=== PATIENT | male | born 1965 | race Caucasian/White ===

== ENCOUNTER → 2020-02-05 13:57 | Outpatient (CLI) | payer BC, SELFPAY ==
--- NOTE | 2020-02-05 | CA_ITS ---
APPROVED REPORT Exam: Exercise Treadmill Technologist: Sneha Botello, Ht: 5 ft 9 in Wt: 230 lbs BSA: 2.19 m2 HR: 63 bpm BP: 135/84 mmHg Rhythm: NSR,NORMAL Medical History Medical History: HTN, Hyperlipidemia Medications: Lisinopril,,,,, Metoprolol,,,,, Simvastatin,,,,, Gabapentin,,,,, Allergies: No known drug allergies Cardiac Risk Factors: HTN, Hyperlipidemia, FHX of CAD Stress Test Details Test: Faustino HR Resting HR: 71 bpm Max Heart Rate (APMHR): 165 bpm Max HR Achieved: 160 bpm Target HR (85% APMHR): 140 bpm % of APMHR: 96 Recovery HR: 144 bpm BP Resting BP: 135.0/84.0 mmHg Max BP: 156.0/81.0 mmHg Recovery BP: 138.0/60.0 mmHg ECG Resting ECG: NSR,NORMAL Clinical Exercise duration: 08:10 min Highest Stage Achieved: Exercise capacity: 10.1 METs Stress ECG Conclusion EXERCISED 08:10 ON FAUSTINO PROTOCOL. MAX HEART RATE 160 BPM WHICH IS 97% OF PM FOR AGE. MAX BP 156/81. METS 10.1. TEST STOPPED DUE TO SOA AND FATIGUE. NO CHEST PAIN. NO ARRHYTHMIAS/ECTOPY. 1-1.5MM SLIGHTLY UPSLOPING ST DEPRESSION LATERALLY. BORDERLINE + EKG CHANGES FOR ISCHEMIA. NO CP. GXT ONLY(NO IMAGING) Electronically signed by : Reggie Strong, 02/05/2020 17:41:13
== END ==
PROVIDERS: PCP Family Medicine; Visit Provider Family Medicine
DX: R07.89 Other chest pain (principal)
CPT/HCPCS: 93017

== ENCOUNTER → 2020-02-18 06:46 | Outpatient (CLI) | payer BC, SELFPAY ==
--- NOTE | 2020-02-18 | CA_ITS ---
APPROVED REPORT Exam: Pharmacologic Technologist: Sneha Botello, Ht: 5 ft 9 in Wt: 230 lbs BSA: 2.19 m2 HR: 64 bpm BP: 113/81 mmHg Rhythm: NSR,CANNOT R/O OLD INFERIOR SC Medical History Medical History: HTN, Hyperlipidemia Medications: Lisinopril,,,,, Metoprolol,,,,, Simvastatin,,,,, TriaMeterene,,,,, Cardiac Risk Factors: HTN, Hyperlipidemia, FHX of CAD Stress Test Details Test: Faustino HR Resting HR: 75 bpm Max Heart Rate (APMHR): 165 bpm Max HR Achieved: 157 bpm Target HR (85% APMHR): 140 bpm % of APMHR: 95 Recovery HR: 132 bpm BP Resting BP: 113.0/81.0 mmHg Max BP: 145.0/83.0 mmHg Recovery BP: 145.0/83.0 mmHg ECG Resting ECG: NSR,CANNOT R/O OLD INFERIOR SC Clinical Exercise duration: 09:31 min Highest Stage Achieved: Exercise capacity: 10.1 METs Stress ECG Conclusion PATIENT EXERCISED 9:30 ON FAUSTINO PROTOCOL. MAX HEART RATE 157 BPM WHICH IS 95% OF PM FOR AGE. MAX BP 145/83. METS = 10.1. TEST STOPPED ISIDRO TO SOA AND FATIGUE. NO CHEST PAIN. NO ARRHYTHMIAS. 0.5-1MM OF HORIZONTAL ST DEPRESSION LATERALLY. EQUIVOCAL EKG CHANGES. NO CP. MYOVIEW IMAGES REPORTED SEPARATELY. Electronically signed by : Hemant Richard, 02/23/2020 12:18:32
--- NOTE | 2020-02-18 06:53 | NM_ITS ---
APPROVED REPORT Exam: Nuclear Stress Test Indication: Chest pain, Abnormal GXT, HTN, High cholesterol, Family history Patient Location: Outpatient Stress Tech: Danielle Stein [place] Tech:Ceci Lutz, ARRT, RT (R)(N) Ht: 5 ft 9 in Wt: 230 lbs HR: 64 bpm BP: 113/81 mmHg BSA: 2.19 m2 BMI: 33.9 History: Chest pain, Abnormal GXT, HTN, High cholesterol, Family history Procedure: Patient exercised on Faustino protocol 9:30 minutes and sec, resting heart rate 64 bpm, resting blood pressure 113/81 mmHg, with exercise maximum heart rate achived was 157 bpm which is % of the maximum predicted heart rate and blood pressure was 138/70 mmHg. Test was stopped due to SOA and fatigue. Patient denied any complaint of chest pain. Cardiac Stress and Resting SPECT Images: Cardiac Stress and Resting SPECT images were obtained using technetium 99m Myoview 29.8 mCi stress and 10.82 mCi at rest. Ejection fraction is normal at 56%. No fixed or reversible defects are evident. Conclusion: Normal ejection fraction with no evidence of ischemia or infarction Electronically signed by : Donato John MD 02/18/2020 16:33:36
--- NOTE | 2020-02-18 09:27 | HMH.ITSHM ---
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 []TRIAMTERENE LISINOPRIL SIMVASTATIN METOPROLOL
== END ==
PROVIDERS: PCP Family Medicine; Visit Provider Family Medicine
DX: R94.39 Abnormal result of other cardiovascular function study (principal)
CPT/HCPCS: 78452; 93017; A9502

== ENCOUNTER → 2021-12-02 14:11 | Outpatient (CLI) | payer SELFPAY ==
[2021-12-02 19:14] LABS: Alanine Aminotransferase 42 U/L (12-78); Albumin Level 4.5 g/dl (3.5-5.0); Albumin/Globulin Ratio 1.6 (1.1-1.8); Alkaline Phosphatase 95 U/L (38-126); Anion Gap 14.3 mEq/L (5-15); Aspartate Amino Transferase 37 U/L (17-59); Bilirubin,Total 1.3 mg/dl (0.2-1.3); Blood Urea Nitrogen 23 mg/dl (9-20); Calcium 9.5 mg/dl (8.4-10.2); Carbon Dioxide 22 mmol/L (22.0-30.0); Chloride 105 mmol/L (98-107); Estimated Glomerular Filt Rate 57 ml/min (>60); GFR (African American) 69 ML/MIN (>60); Globulin 2.8 g/dL (1.3-3.2); Glucose 98 mg/dl (74-100); Potassium 4.3 mmoL/L (3.5-5.1); Sodium 137 mmol/L (136-145); Total Protein,Serum 7.3 g/dl (6.3-8.2)
[2021-12-02 19:45] LABS: Prostate Specific Ag Screen 0.8 ng/ml (0.0-4.0)
[2021-12-02 20:04] LABS: Vitamin B12 290 pg/mL (239-931)
== END ==
PROVIDERS: PCP Family Medicine; Visit Provider Family Medicine
DX: I10 Essential (primary) hypertension (principal); N40.0 Benign prostatic hyperplasia without lower urinary tract symptoms; Z12.5 Encounter for screening for malignant neoplasm of prostate
CPT/HCPCS: 80053; 82607; G0103

== ENCOUNTER → 2022-12-12 11:00 | Outpatient (CLI) | payer SELFPAY ==
[2022-12-12 20:37] LABS: Basophils # 0.1 K/mm3 (0-0.2); Basophils % 0.5 % (0.1-2.0); Eosinophils # 0.2 K/mm3 (0.0-0.4); Hematocrit 45.1 % (42.0-52.0); Hemoglobin 14.9 g/dL (14.1-18.0); Lymphocytes # 1.2 K/mm3 (0.7-4.5); Lymphocytes % 10.7 % (10-50); Mean Corpuscular Hemoglobin 30.6 pg (27.0-31.2); Mean Corpuscular Volume 92.8 fl (80-94); Mean Platelet Volume 10.2 fl (7.4-10.4); Monocytes # 0.9 K/mm3 (0.1-1.0); Monocytes % 7.7 % (1.7-9.3); Neutrophils # 8.9 K/mm3 (1.8-7.8); Neutrophils % 79.1 % (37.0-80.0); Platelet Count 271 K/mm3 (142-424); Red Blood Count 4.87 M/mm3 (4.60-6.20); Red Cell Distribution Width 13.9 % (11.5-17.5); White Blood Count 11.3 K/mm3 (4.8-10.8)
[2022-12-12 20:56] LABS: Alanine Aminotransferase 27 U/L (12-78); Albumin Level 4.6 g/dl (3.5-5.0); Albumin/Globulin Ratio 1.5 (1.1-1.8); Alkaline Phosphatase 89 U/L (38-126); Anion Gap 19.6 mEq/L (5-15); Aspartate Amino Transferase 22 U/L (17-59); Bilirubin,Total 0.5 mg/dl (0.2-1.3); Blood Urea Nitrogen 25 mg/dl (9-20); Calcium 9.8 mg/dl (8.4-10.2); Carbon Dioxide 20 mmol/L (22.0-30.0); Chloride 104 mmol/L (98-107); Chol/HDL Ratio 4.1 (1-3.5); Cholesterol 142 mg/dl (140-200); Estimated Glomerular Filt Rate 48 ml/min (>60); GFR (African American) 58 ML/MIN (>60); Globulin 3.1 g/dL (1.3-3.2); Glucose 92 mg/dl (74-100); HDL Cholesterol 35 mg/dl (40-60); Potassium 4.6 mmoL/L (3.5-5.1); Sodium 139 mmol/L (136-145); Total Protein,Serum 7.7 g/dl (6.3-8.2); Triglycerides 183 mg/dl (30-150); VLDL Cholesterol 37 mg/dL (0-40)
[2022-12-12 21:07] LABS: Direct LDL Cholesterol 71.93 mg/dL (100-129)
[2022-12-12 21:28] LABS: Prostate Specific Ag Screen 0.8 ng/ml (0.0-4.0)
== END ==
PROVIDERS: PCP Family Medicine; Visit Provider Family Medicine
DX: I10 Essential (primary) hypertension (principal); N40.0 Benign prostatic hyperplasia without lower urinary tract symptoms; E78.5 Hyperlipidemia, unspecified
CPT/HCPCS: 80053; 80061; 85025; G0103

== ENCOUNTER → 2023-05-31 10:56 | Outpatient (CLI) | payer SELFPAY | LOC: SL 10:57 | PROVIDERS: PCP Family Medicine; Visit Provider Nurse Practitioner | DX: G47.30 Sleep apnea, unspecified (principal); R06.83 Snoring | CPT/HCPCS: 95806 ==

== ENCOUNTER 2024-02-12 17:00 | Outpatient (CLI) | payer SELFPAY ==
[2024-02-12 18:55] LABS: Basophils % 0.5 % (0.1-2.0); Eosinophils # 0.2 K/mm3 (0.0-0.4); Eosinophils % 2.6 % (0.1-12.0); Hematocrit 38.7 % (42.0-52.0); Hemoglobin 13.4 g/dL (14.1-18.0); Lymphocytes # 0.9 K/mm3 (0.7-4.5); Lymphocytes % 12.2 % (10-50); Mean Corpuscular HGB Conc 34.6 g/dL (31.8-35.4); Mean Corpuscular Volume 95.5 fl (80-94); Monocytes # 0.7 K/mm3 (0.1-1.0); Monocytes % 9.5 % (1.7-9.3); Neutrophils # 5.3 K/mm3 (1.8-7.8); Neutrophils % 75.2 % (37.0-80.0); Platelet Count 183 K/mm3 (142-424); Red Blood Count 4.05 M/mm3 (4.60-6.20); White Blood Count 7.1 K/mm3 (4.8-10.8)
[2024-02-12 19:13] LABS: Alanine Aminotransferase 26 U/L (12-78); Albumin Level 4.1 g/dl (3.5-5.0); Albumin/Globulin Ratio 1.9 (1.1-1.8); Alkaline Phosphatase 75 U/L (38-126); Anion Gap 15.6 mEq/L (5-15); Aspartate Amino Transferase 38 U/L (17-59); Bilirubin,Total 1.4 mg/dl (0.2-1.3); Blood Urea Nitrogen 18 mg/dl (9-20); Calcium 9.2 mg/dl (8.4-10.2); Carbon Dioxide 21 mmol/L (22.0-30.0); Chloride 108 mmol/L (98-107); Estimated Glomerular Filt Rate 76 ml/min (>60); GFR (African American) 93 ML/MIN (>60); Globulin 2.2 g/dL (1.3-3.2); Glucose 65 mg/dl (74-100); Potassium 3.6 mmoL/L (3.5-5.1); Sodium 141 mmol/L (136-145); Total Protein,Serum 6.3 g/dl (6.3-8.2)
[2024-02-12 19:43] LABS: Prostate Specific Ag Screen 1.2 ng/ml (0.0-4.0)
== END 2024-02-12 23:59 | disposition home or self-care (01) ==
LOC: LAB.DROPOF 02-13 13:03
PROVIDERS: PCP Family Medicine; Visit Provider Family Medicine
DX: N40.0 Benign prostatic hyperplasia without lower urinary tract symptoms (principal); E53.8 Deficiency of other specified B group vitamins; I10 Essential (primary) hypertension; Z68.35 Body mass index [BMI] 35.0-35.9, adult
CPT/HCPCS: 80053; 85025; G0103